=== PATIENT | female | born 1960 | race Caucasian/White ===

== ENCOUNTER 2023-06-28 15:06 | Outpatient (CLI) | payer BC | END 2023-06-28 15:07 | disposition home or self-care (01) | LOC: CSHRAD 15:06 | PROVIDERS: ATTEND Internal Medicine Rheumatology | DX: M25.552 Pain in left hip (principal) ==

== ENCOUNTER 2024-02-16 10:00 | Outpatient (CLI) | payer BC | END 2024-02-16 10:01 | disposition home or self-care (01) | LOC: CSHMRI 10:00 | PROVIDERS: ATTEND Internal Medicine Rheumatology | DX: M25.552 Pain in left hip (principal); M67.88 Other specified disorders of synovium and tendon, other site; S39.012A Strain of muscle, fascia and tendon of lower back, initial encounter; M70.62 Trochanteric bursitis, left hip; M16.0 Bilateral primary osteoarthritis of hip; S73.192A Other sprain of left hip, initial encounter ==

== ENCOUNTER 2024-11-07 08:33 | Outpatient (CLI) | payer BC | END 2024-11-07 08:34 | disposition home or self-care (01) | LOC: CSHRAD 08:33 | PROVIDERS: ATTEND Internal Medicine Rheumatology | DX: M17.0 Bilateral primary osteoarthritis of knee (principal) ==